=== PATIENT | female | born 1960 | race Asian ===

== ENCOUNTER 2018-03-26 20:46 | Emergency (ER) | payer MEDICAID, OTHER ==
--- NOTE | 2018-03-26 21:22 | EDPHY ---
HPI/HX/ROS/PE/MDM Narrative: CHIEF COMPLAINT: Disorientation, confusion HPI: This patient is a healthy 57 year old female. She presents today after several episodes of confusion and disorientation while giving a presentation. This morning at 6:30am, she gave a webinar presentation for three hours. She had another 3 hour presentation this afternoon. Following these, her boss told her she had been silent for about one hour in the morning, and then incoherent or otherwise not acting appropriately for about two hours in the afternoon. The patient admits that she found herself telling unrelated stories and then realizing she was supposed to be presenting. She reports that she has felt sleep deprived for some time and has only been sleeping 3-4 hours per night. She denies any new medications. She endorses a family history of mental illnesses including personal history of depression. Additionally, the patient notes that she fell down a flight of stairs several days ago and has some residual neck pain from that event. She was not evaluated at that time. She is not anticoagulated. She denies fever, dysuria, visual changes, vomiting, or other associated symptoms. REVIEW OF SYSTEMS: Aside from elements discussed in the HPI, a comprehensive 10-point review of systems was reviewed and is negative. PMH: Hysterectomy, orthopedic surgeries. SOCIAL HISTORY: Single. Lives in [place]. Does not abuse tobacco, drugs, or alcohol. PHYSICAL EXAM: General:Patient is alert, in no acute distress. ENT:Eyes are normal to inspection. ENT inspection normal. Neck: Normal inspection. Full range of motion. Respiratory:No respiratory distress. Breath sounds normal bilaterally. Cardiovascular: Regular rate and rhythm. Strong peripheral pulses. Normal cap refill. Abdomen:The abdomen is nontender to palpation. There are no peritoneal signs. There are normal bowel sounds. Back: Normal to inspection. No tenderness to palpation. Skin: Normal color. No rash. Warm and dry. Extremities: Normal appearance. Full range of motion. Neuro: Oriented x3. Normal motor function. Normal sensory function. No pronator drift. Normal cranial nerves. ED Course: 57 y/o female presents following episodes of disorientation and confusion today. Plan for EKG, labs including CBC, chemistries, troponin, coag panel. Plan for CT head due to history of trauma. Plan to administer 1L IV NS. Laboratory studies largely unremarkable. POC troponin is 0.0. 21:50 EKG was ordered and interpreted by myself. Please see [employer] system for official reading. Sinus rhythm. Plan for additional laboratory studies including drug screen, TSH, UA. 21:[address] Tolliver, radiologist. CT head negative for acute processes. Reassessed patient. Discussed imaging and laboratory results. I offered admission for further evaluation, but the patient declines. UA positive for UTI. Plan to administer 100mg PO Macrobid. Plan to discharge home in good condition with prescription for Macrobid. Follow up and return precautions discussed. She is comfortable with this plan. MDM: This patient presents with fairly bizarre history of abnormal behavior during weapon are earlier today. Patient's description of symptoms does not seem consistent with a stroke but rather more suggestive of a more global process or possibly even a mental health issue. The patient reports being quite sleep deprived, sleeping only 3 hr a night for quite some time, so I think this is a likely contributor. She also was found to have a UTI which may be contributing to her symptoms. I offered her further workup but she declines. I think she is safe for outpatient management as her symptoms have completely resolved and do not suggest TIA. - Data Points Imaging Results: Imaging Impressions Head CT 03/26/18 21:23 Impression: 1. Normal CT brain without contrast. 2. Consider MRI of the brain, if there is continued clinical concern. Findings and recommendations discussed with Emergency Department physician, Nirmal Lott MD at 21:59 hour, 03/26/2018. Final report concurs with initial preliminary interpretation. Imaging: Discussed imaging studies w/ banquet server on call Radiologist Laboratory Results: Laboratory Results 03/26/18 21:10 03/26/18 21:10 03/26/18 03/26/18 03/26/18 22:20 21:16 21:13 WBC RBC Hgb POC Hgb 15.6 gm/dL gm/dL (12.6-16.3) Hct POC Hct 46 % % (38-47) MCV MCH MCHC RDW Plt Count MPV Neut % (Auto) Lymph % (Auto) Price % (Auto) Eos % (Auto) Baso % (Auto) Nucleat RBC Rel Count Absolute Neuts (auto) Absolute Lymphs (auto) Absolute Monos (auto) Absolute Eos (auto) Absolute Basos (auto) Absolute Nucleated RBC Immature Gran % Immature Gran # PT INR APTT POC Sodium 143 mEq/L mEq/L (135-145) Sodium POC Potassium 4.1 mEq/L mEq/L (3.3-5.0) Potassium POC Chloride 108 mEq/L mEq/L (97-110) Chloride Carbon Dioxide Anion Gap POC BUN 19 mg/dL mg/dL (7-23) BUN Creatinine POC Creatinine 0.6 mg/dL mg/dL (0.6-1.0) Estimated GFR Glucose POC Glucose 106 mg/dL H mg/dL (70-100) Calcium POC Troponin I 0.00 ng/mL ng/mL (0.00-0.08) TSH Urine Color YELLOW Urine Appearance HAZY Urine pH 5.0 (5.0-7.5) Ur Specific [place] 1.027 (1.002-1.030) Urine Protein NEGATIVE (NEGATIVE) Urine Ketones TRACE H (NEGATIVE) Urine Blood 1+ H (NEGATIVE) Urine Nitrate POSITIVE H (NEGATIVE) Urine Bilirubin NEGATIVE (NEGATIVE) Urine Urobilinogen NEGATIVE EU EU (0.2-1.0) Ur Leukocyte Esterase NEGATIVE (NEGATIVE) Urine RBC 5-10 /hpf H /hpf (0-3) Urine WBC 1-3 /hpf /hpf (0-3) Ur Epithelial Cells TRACE /lpf /lpf (NONE-1+) Urine Bacteria 4+ /hpf H /hpf (NONE SEEN) Urine Mucus 3+ /lpf H /lpf (NONE-1+) Urine Glucose NEGATIVE (NEGATIVE) Urine Opiates Screen NEGATIVE (NEGATIVE) Urine Barbiturates NEGATIVE (NEGATIVE) Ur Phencyclidine Scrn NEGATIVE (NEGATIVE) Ur Amphetamine Screen NEGATIVE (NEGATIVE) U Benzodiazepines Scrn NEGATIVE (NEGATIVE) Urine Cocaine Screen NEGATIVE (NEGATIVE) U Marijuana (THC) Screen NEGATIVE (NEGATIVE) 03/26/18 03/26/18 03/26/18 21:10 21:10 21:10 WBC RBC Hgb POC Hgb Hct POC Hct MCV MCH MCHC RDW Plt Count MPV Neut % (Auto) Lymph % (Auto) Price % (Auto) Eos % (Auto) Baso % (Auto) Nucleat RBC Rel Count Absolute Neuts (auto) Absolute Lymphs (auto) Absolute Monos (auto) Absolute Eos (auto) Absolute Basos (auto) Absolute Nucleated RBC Immature Gran % Immature Gran # PT 12.5 SEC SEC (12.0-15.0) INR 0.91 (0.83-1.16) APTT 25.8 SEC SEC (23.0-38.0) POC Sodium Sodium 136 mEq/L mEq/L (135-145) POC Potassium Potassium 4.2 mEq/L mEq/L (3.3-5.0) POC Chloride Chloride 108 mEq/L mEq/L (97-110) Carbon Dioxide 23 mEq/l mEq/l (22-31) Anion Gap 5 mEq/L L mEq/L (8-16) POC BUN BUN 19 mg/dL mg/dL (7-23) Creatinine 0.6 mg/dL mg/dL (0.6-1.0) POC Creatinine Estimated GFR > 60 Glucose 102 mg/dL H mg/dL (70-100) POC Glucose Calcium 9.2 mg/dL mg/dL (8.5-10.4) POC Troponin I TSH Pending Urine Color Urine Appearance Urine pH Ur Specific [place] Urine Protein Urine Ketones Urine Blood Urine Nitrate Urine Bilirubin Urine Urobilinogen Ur Leukocyte Esterase Urine RBC Urine WBC Ur Epithelial Cells Urine Bacteria Urine Mucus Urine Glucose Urine Opiates Screen Urine Barbiturates Ur Phencyclidine Scrn Ur Amphetamine Screen U Benzodiazepines Scrn Urine Cocaine Screen U Marijuana (THC) Screen 03/26/18 21:10 WBC 5.18 10^3/uL 10^3/uL (3.80-9.50) RBC 5.03 10^6/uL 10^6/uL (4.18-5.33) Hgb 15.3 g/dL g/dL (12.6-16.3) POC Hgb Hct 44.6 % % (38.0-47.0) POC Hct MCV 88.7 fL fL (81.5-99.8) MCH 30.4 pg pg (27.9-34.1) MCHC 34.3 g/dL g/dL (32.4-36.7) RDW 12.5 % % (11.5-15.2) Plt Count 259 10^3/uL 10^3/uL (150-400) MPV 9.1 fL fL (8.7-11.7) Neut % (Auto) 58.8 % % (39.3-74.2) Lymph % (Auto) 35.1 % % (15.0-45.0) Price % (Auto) 4.1 % L % (4.5-13.0) Eos % (Auto) 1.0 % % (0.6-7.6) Baso % (Auto) 0.8 % % (0.3-1.7) Nucleat RBC Rel Count 0.0 % % (0.0-0.2) Absolute Neuts (auto) 3.05 10^3/uL 10^3/uL (1.70-6.50) Absolute Lymphs (auto) 1.82 10^3/uL 10^3/uL (1.00-3.00) Absolute Monos (auto) 0.21 10^3/uL L 10^3/uL (0.30-0.80) Absolute Eos (auto) 0.05 10^3/uL 10^3/uL (0.03-0.40) Absolute Basos (auto) 0.04 10^3/uL 10^3/uL (0.02-0.10) Absolute Nucleated RBC 0.00 10^3/uL 10^3/uL (0-0.01) Immature Gran % 0.2 % % (0.0-1.1) Immature Gran # 0.01 10^3/uL 10^3/uL (0.00-0.10) PT INR APTT POC Sodium Sodium POC Potassium Potassium POC Chloride Chloride Carbon Dioxide Anion Gap POC BUN BUN Creatinine POC Creatinine Estimated GFR Glucose POC Glucose Calcium POC Troponin I TSH Urine Color Urine Appearance Urine pH Ur Specific [place] Urine Protein Urine Ketones Urine Blood Urine Nitrate Urine Bilirubin Urine Urobilinogen Ur Leukocyte Esterase Urine RBC Urine WBC Ur Epithelial Cells Urine Bacteria Urine Mucus Urine Glucose Urine Opiates Screen Urine Barbiturates Ur Phencyclidine Scrn Ur Amphetamine Screen U Benzodiazepines Scrn Urine Cocaine Screen U Marijuana (THC) Screen Medications Given: Discontinued Medications Sodium Chloride (Ns) 1,000 mls @ 0 mls/hr IV EDNOW ONE; Wide Open PRN Reason: Protocol Stop: 03/26/18 21:24 Last Admin: 03/26/18 21:41 Dose: 1,000 mls Nitrofurantoin Macrocrystals (Macrobid) 100 mg PO EDNOW ONE PRN Reason: Protocol Stop: 03/26/18 22:48 Last Admin: 03/26/18 23:09 Dose: 100 mg Point of Care Test Results: Chemistry 03/26/18 03/26/18 21:16 21:13 POC Sodium 143 mEq/L mEq/L (135-145) POC Potassium 4.1 mEq/L mEq/L (3.3-5.0) POC Chloride 108 mEq/L mEq/L (97-110) POC BUN 19 mg/dL mg/dL (7-23) POC Creatinine 0.6 mg/dL mg/dL (0.6-1.0) POC Glucose 106 mg/dL H mg/dL (70-100) POC Troponin I 0.00 ng/mL ng/mL (0.00-0.08) ISTAT H&H 03/26/18 21:16 POC Hgb 15.6 gm/dL gm/dL (12.6-16.3) POC Hct 46 % % (38-47) Comprehensive Metabolic Panel CMP Collection Date 03/26/18 CMP Collection Time 21:10 General Time Seen by Provider: 03/26/18 21:15 Initial Vital Signs: Initial Vital Signs Temperature (C) 363.6 C H 03/26/18 20:56 Heart Rate 94 03/26/18 20:56 Respiratory Rate 18 03/26/18 20:56 Blood Pressure 140/93 H 03/26/18 20:56 O2 Sat (%) 97 03/26/18 20:56 O2 Delivery Mode Room Air Allergies/Adverse Reactions: erythromycin base Allergy (Verified 03/26/18 20:55) meperidine [From Demerol] Allergy (Verified 03/26/18 20:55) tetracycline Allergy (Verified 03/26/18 20:55) Home Medications: Medication Instructions Recorded Advair 250/50 (*) 03/26/18 Nitrofurantoin Monohyd/M-Cryst 100 mg PO BID #14 capsule 03/26/18 [Macrobid 100 mg Capsule] Omeprazole 03/26/18 Wellbutrin Sr 03/26/18 Departure - Departure Disposition: Home, Routine, Self-Care Clinical Impression: UTI (urinary tract infection) Condition: Good Instructions: Urinary Tract Infection in Women (ED) Additional Instructions: Follow up with your primary care physician within one week. Follow up with neurology for further evaluation. Take Macrobid as prescribed. Return to the Emergency Department for severe headache, vomiting, vision changes , confusion, fever or other concerns. Return to the Emergency Department for fever, worsening pain, flank pain or failure to improve within 72 hours. It is possible that the bacteria causing your infection is resistant to the antibiotic we've placed you on. We have sent a urine for culture, if this comes back with a resistant bacteria, we will call you at the number you provided to us. Referrals: Jessica Huber [Primary Care Provider] - As per Instructions Lefty Camara DO [Medical Doctor] - As per Instructions Prescriptions: Nitrofurantoin Monohyd/M-Cryst [Macrobid 100 mg Capsule] 100 mg PO BID #14 capsule Report Scribed for: Nirmal Lott Report Scribed by: Emily Angeles Date of Report: 03/26/18 Time of Report: 21:22 Physician Review and Approval Statement: Portions of this note were transcribed by an ED scribe. I personally performed the history, physical exam, and medical decision making; and confirm the accuracy of the information in the transcribed note.
[2018-03-26] MEDS ORDERED: NS 1,000 ML IV ONE (21:23)
[2018-03-26 21:43] LABS: PLATELET COUNT 259 10^3/uL (150-400)
--- NOTE | 2018-03-26 21:50 | CPEKG ---
Heart Rate: 76 RR Interval: 789 P-R Interval: 192 QRSD Interval: 82 QT Interval: 384 QTC Interval: 432 P [place]: 78 QRS [place]: 71 T Wave [place]: 54 EKG Severity - NORMAL ECG - EKG Impression: SINUS RHYTHM Electronically Signed By: Jorge Delcid 30-Mar-2018 09:06:32
[2018-03-26 21:58] LABS: INR 0.91 (0.83-1.16); PROTIME(PATIENT) 12.5 SEC (12.0-15.0)
[2018-03-26] MEDS ORDERED: NITROFURANTOIN MACROBID 100 MG CAP PO ONE (22:47)
[2018-03-26 23:17] VITALS: BP 142/94
== END 2018-03-26 23:17 | disposition home or self-care (01) ==
DX: N39.0 Urinary tract infection, site not specified (principal); B96.89 Other specified bacterial agents as the cause of diseases classified elsewhere; E86.9 Volume depletion, unspecified
CPT/HCPCS: 80305; 82435-PO; 82565-PO; 82947-PO; 84132-PO; 84295-PO; 84484-PO; 84520-PO; 85014-PO